=== PATIENT | female | born 1970 | race Caucasian/White ===

== ENCOUNTER → 2018-06-24 08:57 | Outpatient (CLI) | payer OTHER, SELFPAY ==
--- NOTE | 2018-06-24 | DI.MG.S_ITS ---
BILATERAL DIGITAL SCREENING MAMMOGRAM 3D/2D WITH CAD: 06/24/2018 CLINICAL: Routine screening. Comparison is made to exams dated: 03/26/2016 mammogram - [facility], 07/19/2014 mammogram, 06/03/2012 mammogram, and 04/29/2011 mammogram - [facility]. The tissue of both breasts is heterogeneously dense. This may lower the sensitivity of mammography. Current study was also evaluated with a Computer Aided Detection (CAD) system. No significant masses, calcifications, or other findings are seen in either breast. There has been no significant interval change. IMPRESSION: NEGATIVE There is no mammographic evidence of malignancy. A 1 year screening mammogram is recommended. This exam was interpreted at Station ID: [id number]. NOTE: For mammograms, a report in lay terms will be sent to the patient. Approximately 15% of breast malignancies will not be visualized mammographically. In the management of a palpable breast mass, a negative mammogram must not discourage biopsy of a clinically suspicious lesion. Electronically Signed By: Balta [email or web address]:06/24/2018 09:29:59 letter sent: Normal Exam ACR BI-RADS Category 1: Negative 3341F
== END ==
PROVIDERS: PCP Family Medicine; Visit Provider Family Medicine
DX: Z12.31 Encounter for screening mammogram for malignant neoplasm of breast (principal)
CPT/HCPCS: 77063; 77067

== ENCOUNTER → 2018-12-10 07:03 | Outpatient (CLI) | payer OTHER, SELFPAY ==
[2018-12-10 07:54] LABS: Add Manual Diff / Slide Review NO; Basophils Absolute Auto 0 /uL (0-100); Basophils Percent Auto 0.5 % (0-2); Eosinophils Absolute Auto 200 /uL (0-450); Eosinophils Percent Auto 3.9 % (2-4); Hematocrit 40.6 % (36-46); Hemoglobin 13.6 g/dL (12.0-16.0); Lymphocytes Absolute Auto 1300 /uL (1100-4500); Lymphocytes Percent Auto 27.5 % (25-40); Mean Corpuscular HGB Conc 33.5 % (30-36); Mean Corpuscular Hemoglobin 29.9 PG (26-34); Mean Corpuscular Volume 89.3 fL (80-100); Monocytes Absolute Auto 400 /uL (0-900); Monocytes Percent Auto 7.5 % (3-14); Neutrophils Absolute Auto 3000 /uL (1500-7000); Neutrophils Percent Auto 60.6 % (50-75); Platelet Count 166 X10^3/uL (150-400); Red Blood Cell Count 4.55 X10^6/uL (4.0-5.2); Red Cell Distribution Width 12.5 % (11.6-14.8); White Blood Cell Count 4.9 X10^3/uL (4.5-11.0)
[2018-12-10 08:05] LABS: Appearance Urine UA CLEAR; Bilirubin Urine UA NEGATIVE (NEGATIVE); Color Urine UA YELLOW; Glucose Urine UA NEGATIVE (Negative); Ketones Urine UA NEGATIVE (NEGATIVE); Leukocyte Esterase Urine UA NEGATIVE (NEGATIVE); Nitrite Urine UA NEGATIVE (Negative); Occult Blood Urine UA NEGATIVE (Negative); Protein Urine UA NEGATIVE (Negative); Urobilinogen Urine UA 0.2 E.U./dL (0.2)
[2018-12-10 09:02] LABS: Alanine Aminotransferase 19 IU/L (9-52); Albumin 4.3 g/dL (3.5-5.0); Albumin Globulin Ratio 1.4 (1.0-2.8); Alkaline Phosphatase 45 U/L (38-126); Aspartate Aminotransferase 34 IU/L (14-36); BUN Creatinine Ratio 31.4 (6-22); Bilirubin Total 0.6 mg/dL (0.2-1.3); Blood Urea Nitrogen 22 mg/dL (7-17); Calcium 9.8 mg/dL (8.4-10.2); Carbon Dioxide 31 mmol/L (22-32); Chloride 106 mmol/L (98-107); Cholesterol 221 mg/dL (140-199); Estimated Glomerular Filt Rate > 60.0 mL/min (>60); Globulin 3.1 g/dL (1.7-4.1); Glucose 92 mg/dL (70-100); HDL Cholesterol 71 mg/dL (40-60); HEMOLYSIS < 15 (0-50); LDL Cholesterol Calculated 128 mg/dL (<100); Potassium 4.5 mmol/L (3.4-5.1); Sodium 143 mmol/L (137-145); Total Protein 7.4 g/dL (6.3-8.2); Triglycerides 109 mg/dL (35-150)
[2018-12-10 09:29] LABS: Thyroid Stimulating Hormone 1.08 uIU/mL (0.47-4.68)
== END ==
PROVIDERS: PCP Family Medicine; Visit Provider Family Medicine
DX: I10 Essential (primary) hypertension (principal); Z51.81 Encounter for therapeutic drug level monitoring; Z78.0 Asymptomatic menopausal state
CPT/HCPCS: 36415; 80053; 80061; 81003; 84443; 85025

== ENCOUNTER → 2020-12-04 12:56 | Outpatient (CLI) | payer OTHER, SELFPAY ==
--- NOTE | 2020-12-04 12:58 | DI.RAD.S_ITS ---
PROCEDURE: XR ANKLE RT MIN 3V INDICATIONS: ankle injury, lateral malleoli, r/o fx TECHNIQUE: 3 views of the ankle were acquired. COMPARISON: None. FINDINGS: Bones: No fractures or dislocations. Ankle mortise is normally aligned. No suspicious bony lesions. Plantar calcaneal spur noted. Soft tissues: No tibiotalar joint effusion. Achilles tendon appears normal. Generalized soft tissue swelling present. IMPRESSION: Soft tissue swelling without fracture or foreign body Posterior calcaneal spur Dictated by: Kenneth Huerta M.D. on 12/04/2020 at 13:02 Approved by: Kenneth Huerta M.D. on 12/04/2020 at 13:03
--- NOTE | 2020-12-04 12:58 | DI.RAD.S_ITS ---
PROCEDURE: XR FOOT RT MIN 3V INDICATIONS: ankle injury, r/o fx TECHNIQUE: 3 views of the foot were acquired. COMPARISON: None. FINDINGS: Bones: No fractures or dislocations. No suspicious bony lesions. Posterior calcaneal spur noted. First MTP joint space narrowing and marginal osteophyte noted Soft tissues: No tibiotalar joint effusion. Achilles tendon appears normal. IMPRESSION: Dorsal soft tissue swelling without fracture or foreign body. 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 Dictated by: Kenneth Huerta M.D. on 12/04/2020 at 13:03 Approved by: Kenneth Huerta M.D. on 12/04/2020 at 13:40
== END ==
PROVIDERS: Referring Provider Physician Assistant; Visit Provider Physician Assistant
DX: S99.911A Unspecified injury of right ankle, initial encounter (principal); M79.89 Other specified soft tissue disorders; M77.31 Calcaneal spur, right foot; M19.071 Primary osteoarthritis, right ankle and foot; X58.XXXA Exposure to other specified factors, initial encounter
CPT/HCPCS: 73610; 73630